=== PATIENT | female | born 1970 | race Asian ===

== ENCOUNTER 2016-07-12 10:42 | Outpatient (CLI) | payer OTHER | END 2016-07-12 10:43 | disposition home or self-care (01) | DX: N63 Unspecified lump in breast (principal) ==

== ENCOUNTER 2017-01-30 16:34 | Emergency (ER) | payer OTHER ==
--- NOTE | 2017-01-30 19:30 | ED Physician Documentation ---
PD HPI SKIN - Stated complaint Stated Complaint: HIVES,LIPS SWELLING - Chief complaint Chief Complaint: Allergic Rx - History obtained from History obtained from: Patient, Family - History of Present Illness Timing - onset: How many days ago (2) Timing - duration: Days (2) Timing - details: Gradual onset, Still present, Waxing and waning Location: [place] Quality / character: Itchy, Burning, Other (swelling of upper lip today. Does not take JIMENEZ meds. No new meds. Got back from [facility] 2 days prior to onset. No noted new exposures.) Associated symptoms: Facial swelling (lip today). No: Fever, Myalgias, Dyspnea , N/V/D Contributing factors: No: Exposed to medication, Exposed to food, Recent illness Similar symptoms before: Has not had sx before Recently seen: Not recently seen Review of Systems Constitutional: denies: Fever, Chills Nose: denies: Rhinorrhea / runny nose, Congestion Throat: denies: Sore throat Respiratory: denies: Cough GI: denies: Abdominal Pain, Nausea, Vomiting, Diarrhea : denies: Dysuria, Frequency Skin: reports: Rash Musculoskeletal: denies: Neck pain, Back pain Neurologic: denies: Near syncope, Headache PD PAST MEDICAL HISTORY - Past Medical History Cardiovascular: None Respiratory: None Neuro: None Endocrine/Autoimmune: None GI: GERD - 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 HEENT: Rhinoplasty - Present Medications Home Medications: Ambulatory Orders Medication Instructions Recorded Confirmed Cetirizine [ZyrTEC] 10 mg PO DAILY #10 tablet 01/30/17 Dexamethasone [Decadron] 4 mg PO BID #10 tablet 01/30/17 Famotidine [Pepcid] 20 mg PO ONCE #10 tablet 01/30/17 Pantoprazole [Protonix] 40 mg PO DAILY 01/30/17 01/30/17 - Allergies Allergies/Adverse Reactions: Allergies Allergy/AdvReac Type Severity Reaction Status Date / Time codeine Allergy Intermediate Nausea Verified 01/30/17 19:32 hydrocodone Allergy Intermediate Nausea Verified 01/30/17 19:32 oxycodone [Oxycodone] Allergy Intermediate Nausea Verified 01/30/17 19:32 amoxicillin [Amoxicillin] Allergy Unknown Verified 01/30/17 19:32 - Social History Does the pt smoke?: No Smoking Status: Never smoker PD ED PE NORMAL - Vitals Vital signs reviewed: Yes - General General: Alert and oriented X 3, Well developed/nourished - HEENT HEENT: Pharynx benign (outer lip swelling. no intraoral swelling noted. Normal voice and breathing. ) - Neck Neck: Supple, no meningeal sign, No adenopathy - Cardiac Cardiac: RRR, No murmur - Respiratory Respiratory: Clear bilaterally - Derm Derm: Normal color, Warm and dry, Other (general hives noted, not in palms though. ) - Neuro Neuro: Alert and oriented X 3, No motor deficit, Normal speech Results - Vitals Vitals: Vital Signs - 24 hr 01/30/17 01/30/17 01/30/17 16:48 18:17 19:38 Temperature 36.4 C L 36.5 C 36.9 C Heart Rate 99 83 86 Respiratory 18 15 15 Rate Blood Pressure 113/78 119/67 113/69 O2 Saturation 100 99 100 01/30/17 20:00 Temperature 36.2 C L Heart Rate 86 Respiratory 18 Rate Blood Pressure 105/73 O2 Saturation 100 Oxygen O2 Source Room air PD MEDICAL DECISION MAKING - ED course Complexity details: considered differential (outer lip swelling but not intraoral, with hives. No trouble breathing. ), d/w patient Departure - Departure Disposition: 01 Home, Self Care Clinical Impression: Allergic reaction Qualifiers: Encounter type: initial encounter Qualified Code(s): T78.40XA - Allergy, unspecified, initial encounter Condition: Stable Record reviewed to determine appropriate education?: Yes Instructions: ED Allergic Reaction General Other Follow-Up: Antoinette Cummings DO [Primary Care Provider] - Prescriptions: Dexamethasone [Decadron] 4 mg PO BID #10 tablet Famotidine [Pepcid] 20 mg PO ONCE #10 tablet Cetirizine [ZyrTEC] 10 mg PO DAILY #10 tablet Comments: Drink lots of fluids. Continue the steroids dexamethasone twice daily for the next 5 days. Cetirizine daily for a week and famotidine daily for a week as long-acting antihistamines. Add Benadryl 1-2 tablets every 6 hours if needed for itching and swelling. Recheck if not improved over the next few days. If this goes away and stays away then no further testing needed. If it persists despite despite medication or is recurrent in the near future then allergy testing may be warranted. Discharge Date/Time: 01/30/17 20:00
[2017-01-30] MEDS ORDERED: FAMOTIDINE 20 MG TABLET PO STA (19:49)
[2017-01-30] MEDS ORDERED: diphenhydrAMINE 25 MG CAPSULE PO STA (19:49)
[2017-01-30] MEDS ORDERED: CETIRIZINE 10 MG TABLET PO STA (19:49)
[2017-01-30] MEDS ORDERED: DEXAMETHASONE 10 MG/ML VIAL PO STA (19:50)
[2017-01-30] MEDS ORDERED: FAMOTIDINE 20 MG TABLET ONE (19:56)
[2017-01-30] MEDS ORDERED: diphenhydrAMINE 25 MG CAPSULE PO ONE (19:56)
[2017-01-30] MEDS ORDERED: DEXAMETHASONE 10 MG/ML VIAL ONE (19:57)
[2017-01-30] MEDS ORDERED: CETIRIZINE 10 MG TABLET ONE (19:57)
[2017-01-30 20:00] VITALS: BP 105/73
== END 2017-01-30 20:00 | disposition home or self-care (01) ==
LOC: ED 16:34
DX: T78.40XA Allergy, unspecified, initial encounter (principal); X58.XXXA Exposure to other specified factors, initial encounter; K21.9 Gastro-esophageal reflux disease without esophagitis
CPT/HCPCS: 99283; A9270

== ENCOUNTER 2017-03-13 12:21 | Outpatient (CLI) | payer OTHER ==
--- NOTE | 2017-03-13 17:26 | Ultrasound Report ---
RIGHT INGUINAL ULTRASOUND: 03/13/2017 CLINICAL INDICATION: Chronic pelvic pain. TECHNIQUE: Real-time scanning was performed with account services representative static images obtained. Ultrasound of the right inguinal canal was performed. There is no evidence of hernia. No adenopathy or mass is identified. IMPRESSION: UNREMARKABLE APPEARANCE OF THE RIGHT INGUINAL CANAL. NO EVIDENCE OF HERNIA. JOB #: [id number] EXT JOB #:[id number]
== END 2017-03-13 12:22 | disposition home or self-care (01) ==
LOC: DI 12:21
PROVIDERS: ATTEND Surgery
DX: R10.2 Pelvic and perineal pain (principal)
CPT/HCPCS: 76857

== ENCOUNTER 2017-04-15 13:53 | Outpatient (CLI) | payer OTHER | END 2017-04-15 13:54 | disposition home or self-care (01) | LOC: LAB.R 13:53 | PROVIDERS: ATTEND Obstetrics & Gynecology | DX: Z11.3 Encounter for screening for infections with a predominantly sexual mode of transmission (principal) | CPT/HCPCS: 87491; 87591 ==

== ENCOUNTER 2017-04-21 10:19 | Outpatient (CLI) | payer OTHER ==
--- NOTE | 2017-04-21 13:34 | Mammography Report ---
DIGITAL DIAGNOSTIC BILATERAL MAMMOGRAM: 04/21/2017 CLINICAL INDICATION: Bilateral palpable abnormalities and pain. TECHNIQUE: Bilateral CC and MLO views, bilateral true lateral views. Markers were placed at the site of painful palpable abnormalities identified by the patient. COMPARISON: 07/12/2016, 06/27/2015, 07/20/2014, 09/27/2013, 09/29/2012, 09/09/2011, 09/19/2010, 09/11. FINDINGS: The breasts again demonstrate heterogeneously dense fibroglandular parenchyma bilaterally. There is a shifting pattern of circumscribed nodules bilaterally, with nodules correlating with the tender palpable abnormalities identified by the markers. Biopsy marker in the left breast is stable. Coarse, typically benign calcifications are present. No suspicious masses, clustered microcalcificati ons, or regions of architectural distortion are identified. IMPRESSION: BENIGN FINDINGS. RECOMMENDATION: ROUTINE ANNUAL SCREENING UNLESS OTHERWISE CLINICALLY INDICATED. BIRADS CATEGORY 2-BENIGN FINDINGS. STANDARD QUALIFYING STATEMENTS 1. This examination was reviewed with the aid of Computer-Aided Detection (CAD). 2. A negative or benign imaging report should not delay biopsy if clinically suspicious findings are present. Consider surgical consultation if warranted. More than 5% of cancers are not identified by i maging. 3. Dense breasts may obscure an underlying neoplasm. JOB #: [id number] EXT JOB #:[id number]
== END 2017-04-21 10:20 | disposition home or self-care (01) ==
LOC: DI 10:19
PROVIDERS: ATTEND Family Medicine
DX: N63.21 Unspecified lump in the left breast, upper outer quadrant (principal); N64.4 Mastodynia; N63.11 Unspecified lump in the right breast, upper outer quadrant
CPT/HCPCS: 77066

== ENCOUNTER 2017-04-26 12:49 | Outpatient (CLI) | payer OTHER ==
--- NOTE | 2017-04-26 17:34 | Ultrasound Report ---
EXAM: PELVIC ULTRASOUND EXAM DATE: 04/26/2017 01:34 p.m. CLINICAL HISTORY: Irregular menses. Previous section and tubal ligation. COMPARISON: 01/25/2015. TECHNIQUE: Realtime transabdominal pelvic scan performed to identify the uterus and adnexa and as an overview of other pelvic structures, followed by transvaginal scan to provide greater detail of the u terus and adnexa, with static image documentation. FINDINGS: Uterus: 8.8 x 4.2 x 4.4 cm, volume 85.1 cc. Anteverted position. Normal overall size and echotexture. Masses: None. Endometrium: 6.0 mm. Normal. Cervix: No mass. Nabothian cysts are noted. Right Ovary: 2.5 x 2.0 x 2.8 cm, volume 7.3 cc. Normal echotexture and blood flow. Multiple follicles with the largest measuring 1.1 x 0.8 x 1.2 cm. No concerning sonographic features. Left Ovary: 2.8 x 1.6 x 1.3 cm, volume 3.0 cc. Normal echotexture and blood flow. Free Fluid: None. Other: None. IMPRESSION: 1. Endometrium measures up to 6 mm. No focal thickening, mass or abnormal vascularity. No invasion is noted. 2. No uterine fibroids. 3. Multiple right ovarian follicles. No concerning features. [facility] Referring Provider Line: [phone] SITE ID: [id number]
== END 2017-04-26 12:50 | disposition home or self-care (01) ==
LOC: DI 12:49
PROVIDERS: ATTEND Obstetrics & Gynecology
DX: N92.5 Other specified irregular menstruation (principal)
CPT/HCPCS: 76830; 76856

== ENCOUNTER 2017-06-13 11:16 | Outpatient (CLI) | payer OTHER ==
[2017-06-13 11:40] LABS: BASOPHILS # (AUTO) 0.1 10^3/uL (0.0-0.1); EOSINOPHILS # (AUTO) 0.1 10^3/uL (0.0-0.7); EOSINOPHILS % (AUTO) 1.7 %; HGB - HEMOGLOBIN 11.7 g/dL (12.0-16.0); LYMPHOCYTES # (AUTO) 2.3 10^3/uL (1.5-3.5); LYMPHOCYTES % (AUTO) 27.6 %; MEAN CORPUSCULAR HEMOGLOBIN 23.6 pg (27.0-31.0); MEAN CORPUSCULAR HGB CONC 31.9 g/dL (32.0-36.0); MEAN CORPUSCULAR VOLUME 73.9 fL (81.0-99.0); MEAN PLATELET VOLUME 7.4 fL (7.9-10.8); MONOCYTES # (AUTO) 0.7 10^3/uL (0.0-1.0); MONOCYTES % (AUTO) 8.8 %; NEUTROPHILS # (AUTO) 5.2 10^3/uL (1.5-6.6); NEUTROPHILS % (AUTO) 60.9 %; PLT - PLATELET COUNT 335 10^3/uL (130-450); RED BLOOD COUNT 4.98 10^6/uL (4.20-5.40); RED CELL DISTRIBUTION WIDTH 15.3 % (12.0-15.0); WHITE BLOOD COUNT 8.5 x10^3/uL (4.8-10.8)
[2017-06-13 12:03] LABS: CALCIUM 9.5 mg/dL (8.5-10.3); CREATININE 0.5 mg/dL (0.4-1.0)
== END 2017-06-13 11:17 | disposition home or self-care (01) ==
LOC: LAB 11:16
PROVIDERS: ATTEND Obstetrics & Gynecology
DX: Z01.812 Encounter for preprocedural laboratory examination (principal); R10.2 Pelvic and perineal pain
CPT/HCPCS: 36415; 80048; 84702; 85025

== ENCOUNTER 2017-06-18 10:42 | Day surgery (SDC) | payer OTHER ==
--- NOTE | 2017-06-17 15:04 | PREOP HISTORY & PHYSICAL ---
DATE OF SERVICE: 06/18/2017 Physician: Pk Lantigua MD PATIENT IDENTIFICATION: Patient is a 47-year-old G2, P2, female whose last menstrual period was 21 May 2017. CHIEF COMPLAINT: Lower abdominal pain. HISTORY OF PRESENT ILLNESS: Patient has a longstanding history of right lower quadrant pain. It is sharp in quality. She relates the pain is anywhere from a 6/10 to 8/10. She states it will awaken her from sleep at night. She states the pain will last up to 4 minutes in duration. She denies any precipitating cause such as menstrual cycle, bowel motion, or pareunia. She has had numerous ultrasounds, all of which were benign. She gives a history of having a with tubal ligation in 2003. She has a diagnosed history of interstitial cystitis, but her pain continues despite therapy. PAST MEDICAL HISTORY: Positive for reflux. She also has interstitial cystitis as well as low back pain. SURGICAL HISTORY: section and tubal ligation. ALLERGIES 1. PENICILLIN. 2. CODEINE. 3. VICODIN. CURRENT MEDICATIONS: Protonix. HABITS: Patient drinks wine occasionally. Denies use of tobacco, street or addictive drugs. SOCIAL HISTORY: Patient is . 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 FAMILY HISTORY: Positive for father with an SC, as well as dementia in the mother who from heart disease. PHYSICAL EXAMINATION GENERAL: Patient is a well-developed, well-nourished female. She is in no acute distress at this time. HEENT: Pupils equal, round. Extraocular muscles intact. HEART: Regular rate and rhythm without murmurs. LUNGS: Lung gimenez are clear without rales or wheezes. BACK: No spinal or CVA tenderness noted. ABDOMEN: Exam shows a well healed Pfannenstiel incision from a previous section. She has tenderness in the right lower quadrant duplicating the pain she is complaining of. She has previously had a pelvic examination. STUDIES: She recently had an ultrasound which showed no cysts or any other pathology at this point. ASSESSMENT AND PLAN: A 47-year-old G2, P2 female with a longstanding pelvic pain, which appeared to be noncyclic. My suspicions are this possibly represents adhesions. At this point, we will plan to do a diagnostic laparoscopy with lysis of adhesions if they are present. Risks and benefits were explained to the patient, including those, but not limited to bleeding, infection, injury to pelvic organs, which include the uterus, tubes, ovaries, bowel, bladder, and ureters. She is aware of the potential for DVT with PE, as well as postop adhesions which could cause pain or bowel obstruction. TD: 06/12/2017 15:22
[2017-06-18] MEDS ORDERED: ceFAZolin 2 GM/50 ML 2 GM/50 ML BAG IV ONE (10:43)
[2017-06-18] MEDS ORDERED: LACTATED RINGERS 1,000 ML IV ONE ×3 (11:19→17:10)
[2017-06-18 11:28] LABS: HCG UR QUAL NEGATIVE
[2017-06-18] MEDS ORDERED: BUPIVACAINE 0.25%-EPI 1:200000 PF 10 ML VIAL SUBQ ONE (12:55)
[2017-06-18] MEDS ORDERED: ONDANSETRON 4 MG/2 ML VIAL IVP ONE (13:45)
[2017-06-18] MEDS ORDERED: fentaNYL 100 MCG/2 ML VIAL IVP ONE (13:45)
[2017-06-18] MEDS ORDERED: ROCURONIUM 50 MG/5 ML VIAL IVP ONE (13:45)
[2017-06-18] MEDS ORDERED: KETOROLAC 30 MG/ML VIAL IVP ONE (13:45)
[2017-06-18] MEDS ORDERED: PROPOFOL 200 MG/20 ML VIAL IVP ONE (13:45)
[2017-06-18] MEDS ORDERED: LIDOCAINE-MPF 2% 5 ML VIAL IM ONE (13:45)
[2017-06-18] MEDS ORDERED: GLYCOPYRROLATE 1 MG/5 ML VIAL IVP ONE (13:45)
[2017-06-18] MEDS ORDERED: NEOSTIGMINE 1 MG/1 ML 10 ML MDV IVP ONE (13:45)
[2017-06-18] MEDS: MEPERIDINE 50 MG/ML SYRINGE ONE ×2 (13:58→14:00)
[2017-06-18] MEDS ORDERED: fentaNYL 100 MCG/2 ML VIAL ONE (14:04)
[2017-06-18] MEDS ORDERED: ONDANSETRON 4 MG/2 ML VIAL ONE (15:33)
[2017-06-18] MEDS ORDERED: METOCLOPRAMIDE 10 MG/2 ML VIAL ONE (17:11)
[2017-06-18 17:36] VITALS: BP 122/73
== END 2017-06-18 10:43 | disposition home or self-care (01) ==
LOC: SDS 10:42
PROVIDERS: ATTEND Obstetrics & Gynecology
PROC: 0DBW4ZZ Excision of Peritoneum, Percutaneous Endoscopic Approach (ICD-10-PCS; principal; 2017-06-18 12:00)
DX: K66.0 Peritoneal adhesions (postprocedural) (postinfection) (principal); N94.89 Other specified conditions associated with female genital organs and menstrual cycle
CPT/HCPCS: 49329; 58662; 81025; J0690; J7120

== ENCOUNTER 2017-11-18 09:12 | Outpatient (CLI) | payer OTHER ==
[2017-11-18 12:29] LABS: HB2 TOTAL 12.6 g/dL; HEMOGLOBIN A1C 0.49 g/dL; HEMOGLOBIN A1C % 5.7 % (4.6-6.2)
[2017-11-18 12:31] LABS: BASOPHILS # (AUTO) 0.1 10^3/uL (0.0-0.1); BASOPHILS % (AUTO) 1.1 %; EOSINOPHILS # (AUTO) 0.2 10^3/uL (0.0-0.7); EOSINOPHILS % (AUTO) 2.7 %; HGB - HEMOGLOBIN 11.6 g/dL (12.0-16.0); LYMPHOCYTES # (AUTO) 2.2 10^3/uL (1.5-3.5); LYMPHOCYTES % (AUTO) 33.4 %; MEAN CORPUSCULAR HEMOGLOBIN 24.2 pg (27.0-31.0); MEAN CORPUSCULAR HGB CONC 31.2 g/dL (32.0-36.0); MEAN CORPUSCULAR VOLUME 77.4 fL (81.0-99.0); MEAN PLATELET VOLUME 8.5 fL (7.9-10.8); MONOCYTES # (AUTO) 0.6 10^3/uL (0.0-1.0); MONOCYTES % (AUTO) 8.3 %; NEUTROPHILS # (AUTO) 3.7 10^3/uL (1.5-6.6); NEUTROPHILS % (AUTO) 54.5 %; PLT - PLATELET COUNT 338 10^3/uL (130-450); RED BLOOD COUNT 4.79 10^6/uL (4.20-5.40); RED CELL DISTRIBUTION WIDTH 16.1 % (12.0-15.0); WHITE BLOOD COUNT 6.7 x10^3/uL (4.8-10.8)
[2017-11-18 12:38] LABS: ALBUMIN/GLOBULIN RATIO 1.1 (1.0-2.2); ALKALINE PHOSPHATASE 50 IU/L (42-121); ALT ALANINE AMINOTRANSFERASE 14 IU/L (10-60); AST ASPARTATE AMINOTRANSFERASE 19 IU/L (10-42); BILIRUBIN,TOTAL 0.5 mg/dL (0.2-1.0); BUN - BLOOD UREA NITROGEN 12 mg/dL (6-20); CALCIUM 8.7 mg/dL (8.5-10.3); CARBON DIOXIDE - CO2 26 mmol/L (21-32); CHLORIDE 104 mmol/L (101-111); CHOL/HDL RATIO 4.1 (<4.4); CHOLESTEROL 239 mg/dL; CREATININE 0.5 mg/dL (0.4-1.0); GFR - MDRD 133 (>89); GLUCOSE 98 mg/dL (70-100); HDL CHOLESTEROL 58 mg/dL; LDL CHOLESTEROL,CALCULATED 162 mg/dL; LDL/HDL RATIO 2.8 (<4.4); SODIUM 135 mmol/L (135-145); TOTAL PROTEIN 7.7 g/dL (6.7-8.2); VLDL CHOLESTEROL 19 mg/dL
== END 2017-11-18 09:13 | disposition home or self-care (01) ==
LOC: LAB.WCP 09:12
PROVIDERS: ATTEND Family Medicine
DX: Z00.00 Encounter for general adult medical examination without abnormal findings (principal)
CPT/HCPCS: 36415; 80053; 80061; 83036; 83721; 84443; 85025

== ENCOUNTER 2017-12-11 08:04 | Outpatient (CLI) | payer OTHER ==
[2017-12-11 12:41] LABS: HB2 TOTAL 12.6 g/dL; HEMOGLOBIN A1C 0.49 g/dL; HEMOGLOBIN A1C % 5.7 % (4.6-6.2)
[2017-12-11 12:52] LABS: THYROID STIMULATING HORMONE 1.83 uIU/mL (0.34-5.60)
== END 2017-12-11 08:05 | disposition home or self-care (01) ==
LOC: LAB.WCP 08:04
PROVIDERS: ATTEND Family Medicine
DX: R20.2 Paresthesia of skin (principal)
CPT/HCPCS: 36415; 82607; 83036; 84443; 86140

== ENCOUNTER 2018-02-25 09:12 | Outpatient (CLI) | payer OTHER ==
--- NOTE | 2018-02-25 18:21 | MRI Report ---
Reason: LOW BACK PAIN, CHRONIC Procedure Date: 02/25/2018 Accession Number: [id number] / [id number] Procedure: MRI - Lumbar Spine W/O CPT Code: FULL RESULT: EXAM: MRI LUMBAR SPINE WITHOUT CONTRAST EXAM DATE: 02/25/2018 10:54 AM. CLINICAL HISTORY: Low back pain, chronic. COMPARISON: Lumbar spine MRI from 08/09/2009 8:06 AM. TECHNIQUE: Multiplanar, multisequence T1-weighted and fluid-sensitive sequences of the lumbar spine from T12 to S1 without contrast. Other: None. FINDINGS: Spinal Canal: The conus terminates at L1-L2. The conus medullaris and cauda equina are unremarkable. Alignment: No scoliosis or spondylolisthesis. Bone Marrow: Five ais-[id number]-jkdfasf lumbar vertebral bodies are assumed. Type II degenerative endplate changes at L5-S1. Schmorl's node at the L5 inferior endplate. No acute fracture or bone lesions. Disk Levels/Facets: L5-S1: Minimal disk bulge. Posterior annular fissure. Mild to moderate facet arthropathy. No canal stenosis. Mild to moderate left and mild right foraminal stenoses. No change. L4-L5: Small disk bulge. Mild facet arthropathy. Mild canal and mild to moderate foraminal stenoses. The findings are new since the previous study. L3-L4: Small left foraminal disk protrusion. Minimal left foraminal narrowing. Findings are new since the previous study. L2-L3: Unremarkable. L1-L2 and T12-L1: Unremarkable. Musculature: Normal. No edema or fatty atrophy. Other: The partially visualized retroperitoneum is unremarkable. IMPRESSION: 1. Minimal disk bulge and posterior annular fissure at L5-S1. Mild to moderate left and mild right foraminal stenoses. No change. 2. New small disk bulge at L4-L5. Mild canal and mild to moderate foraminal stenoses. 3. New small left foraminal disk protrusion and minimal left foraminal narrowing at L3-L4. Comment: The following findings are so common in adults without low back pain that while we report their presence, they must be interpreted with caution and in the context of the clinical situation. (Reference Mgk et al, Spine 2001) Prevalence of findings in patients without low back pain: Disk degeneration (any evidence): 92% Disk desiccation/T2 signal loss: 83% Disk height loss: 56% Disk bulge: 64% Disk protrusion: 32% Annular tear/high intensity zone: 38% [facility]
== END 2018-02-25 09:13 | disposition home or self-care (01) ==
LOC: DI 09:12
PROVIDERS: ATTEND Physician Assistant Medical
DX: M51.26 Other intervertebral disc displacement, lumbar region (principal); M48.061 Spinal stenosis, lumbar region without neurogenic claudication; N64.4 Mastodynia; N63.0 Unspecified lump in unspecified breast
CPT/HCPCS: 72148; 77066

== ENCOUNTER 2018-02-25 09:13 | Outpatient (CLI) | payer OTHER ==
--- NOTE | 2018-02-25 11:54 | Mammography Report ---
Reason: MASTALGIA,LUMP OR MASS IN BREAST Procedure Date: 02/25/2018 Accession Number: [id number] / [id number] Procedure: BETITO - Diagnostic Dig Bilat CPT Code: FULL RESULT: EXAM: Diagnostic Dig Bilat DATE: 02/25/2018 11:12 AM CLINICAL HISTORY: 47-year-old female with benign lump removal in the left breast approximately 7-8 years ago. The patient has been having bilateral breast pain for over one year. TECHNIQUE: Bilateral CC and MLO views are obtained. COMPARISON: 04/21/2017, 07/12/2016, 06/27/2015, 07/20/2014. FINDINGS: The breasts demonstrate heterogeneously dense fibroglandular parenchyma bilaterally. Postbiopsy changes in the left upper outer breast are unchanged. Again seen is a shifting pattern of circumscribed hyperdense nodules bilaterally which are compatible with cysts that are waxing and waning. This has also been identified mammographically and sonographically confirmed in the past. No suspicious masses, clustered microcalcifications or regions of architectural distortion are identified. IMPRESSION: Benign findings RECOMMENDATION: Recommend routine annual Screening mammography unless otherwise clinically indicated. BIRADS CATEGORY 2: Benign findings STANDARD QUALIFYING STATEMENTS: 1. This examination was not reviewed with the aid of Computer-Aided Detection (CAD). 2. A negative or benign imaging report should not delay biopsy if clinically suspicious findings are present. Consider surgical consultation if warrented. More than 5% of cancers are not identified by imaging. 3. Dense breasts may obscure an underlying neoplasm.
== END 2018-02-25 09:14 | disposition home or self-care (01) ==
LOC: DI 09:13
PROVIDERS: ATTEND Family Medicine
DX: N64.4 Mastodynia (principal); N63.0 Unspecified lump in unspecified breast
CPT/HCPCS: 77066

== ENCOUNTER 2018-09-17 13:17 | Outpatient (CLI) | payer OTHER ==
[2018-09-17] MEDS ORDERED: BUFFERED LIDOCAINE 10 ML SYRINGE ONE (14:24)
--- NOTE | 2018-09-17 14:49 | Mammography Report ---
Reason: FIBROCYSTIC BREAST DISEASE, LT BREAST CYST Procedure Date: 09/17/2018 Accession Number: [id number] / [id number] Procedure: BETITO - Diagnostic Dig LT CPT Code: FULL RESULT: EXAM: Diagnostic Digital LT Mammogram; Targeted Left Breast Ultrasound; Ultrasound-Guided Left Breast Cyst Aspiration x 2 DATE: 09/17/2018 1:51 PM CLINICAL HISTORY: Painful fibrocystic disease. TECHNIQUE: (L) - Left. CC and MLO views were obtained. Then, targeted left breast ultrasound was performed in the area of clinical interest which was the superior and upper outer quadrant left breast. This was followed by ultrasound-guided therapeutic left breast cyst aspiration. COMPARISON: Ultrasound 04/26/2017, mammogram 07/12/2016, 04/21/2017, and 02/25/2018. PARENCHYMAL PATTERN: (D) - The breasts demonstrate heterogeneously dense fibroglandular parenchyma bilaterally. FINDINGS: On mammography, there are again seen numerous rounded sharply marginated cysts scattered throughout the left breast, too numerous to count. There are at least 2 stable dominant cysts in the superior left breast. Targeted ultrasound discloses 2 benign-appearing dominant cysts in the 12:00 and 1:00 positions each approximately 2 cm maximal diameter, and corresponding to area of breast pain. Informed consent was obtained for ultrasound-guided therapeutic left breast cyst aspiration in the area of maximal breast pain. There are 2 separate approximate 2.0 cm maximal diameter each cysts, one in the 12:00 position and one in the 1:00 position. Using local anesthetic and sterile technique, an 18-gauge needle was used to aspirate each cyst, yielding approximately 1.5 cc from each cyst. No complications. IMPRESSION: Benign findings. BI-RADS category 2. RECOMMENDATION: (ANNUAL) - Recommend routine annual screening mammography. BI-RADS CATEGORY: (2) - Benign Findings. STANDARD QUALIFYING STATEMENTS: 1. This examination was not reviewed with the aid of Computer-Aided Detection (CAD). 2. A negative or benign imaging report should not preclude biopsy if clinically suspicious findings are present. 3. Dense breasts may obscure an underlying neoplasm. 4. This examination was reviewed without the aid of 3D breast imaging (tomosynthesis).
[2018-09-17] MEDS ORDERED: BUFFERED LIDOCAINE 10 ML SYRINGE IU ONE (15:01)
== END 2018-09-17 13:18 | disposition home or self-care (01) ==
LOC: DI 13:17
PROVIDERS: ATTEND Family Medicine
DX: N60.19 Diffuse cystic mastopathy of unspecified breast (principal); N60.02 Solitary cyst of left breast
CPT/HCPCS: 19000; 76642

== ENCOUNTER → 2018-10-29 | Outpatient (CLI) | payer OTHER | LOC: LAB.R 08:00 | PROVIDERS: ATTEND Family Medicine | DX: N76.0 Acute vaginitis (principal) | CPT/HCPCS: 87661; 87801 ==

== ENCOUNTER 2018-11-16 08:00 | Outpatient (CLI) | payer OTHER ==
[2018-11-16 21:30] LABS: CANDIDA GROUP DNA NEGATIVE (NEGATIVE); CANDIDA KRUSEI DNA NEGATIVE (NEGATIVE); TRICHOMONAS VAGINALIS DNA NEGATIVE (NEGATIVE)
== END 2018-11-16 23:59 | disposition home or self-care (01) ==
LOC: LAB.R 08:00
PROVIDERS: ATTEND Family Medicine
DX: N76.0 Acute vaginitis (principal)
CPT/HCPCS: 87661; 87801

== ENCOUNTER 2019-05-25 10:32 | Outpatient (CLI) | payer OTHER ==
[2019-05-25 15:48] LABS: BASOPHILS # (AUTO) 0.1 10^3/uL (0.0-0.1); BASOPHILS % (AUTO) 0.9 %; EOSINOPHILS # (AUTO) 0.2 10^3/uL (0.0-0.7); EOSINOPHILS % (AUTO) 2.9 %; HGB - HEMOGLOBIN 12.5 g/dL (12.0-16.0); LYMPHOCYTES # (AUTO) 2.4 10^3/uL (1.5-3.5); LYMPHOCYTES % (AUTO) 36.8 %; MEAN CORPUSCULAR HEMOGLOBIN 24.7 pg (27.0-31.0); MEAN CORPUSCULAR HGB CONC 29.6 g/dL (32.0-36.0); MEAN CORPUSCULAR VOLUME 83.2 fL (81.0-99.0); MEAN PLATELET VOLUME 10.2 fL (7.9-10.8); MONOCYTES # (AUTO) 0.6 10^3/uL (0.0-1.0); MONOCYTES % (AUTO) 9.4 %; NEUTROPHILS # (AUTO) 3.2 10^3/uL (1.5-6.6); NEUTROPHILS % (AUTO) 49.7 %; PLT - PLATELET COUNT 384 10^3/uL (130-450); RED BLOOD COUNT 5.07 10^6/uL (4.20-5.40); RED CELL DISTRIBUTION WIDTH 16.1 % (12.0-15.0); WHITE BLOOD COUNT 6.5 x10^3/uL (4.8-10.8)
[2019-05-25 16:28] LABS: ALBUMIN 4.3 g/dL (3.2-5.5); ALBUMIN/GLOBULIN RATIO 1.3 (1.0-2.2); BILIRUBIN,TOTAL 0.4 mg/dL (0.2-1.0); CALCIUM 9.2 mg/dL (8.5-10.3); CREATININE 0.6 mg/dL (0.4-1.0); TOTAL PROTEIN 7.7 g/dL (6.7-8.2)
== END 2019-05-25 23:59 | disposition home or self-care (01) ==
LOC: LAB.WCP 10:32
PROVIDERS: ATTEND Family Medicine
DX: R10.11 Right upper quadrant pain (principal)
CPT/HCPCS: 36415; 80053; 80061; 83690; 83721; 84702; 85025

== ENCOUNTER 2019-05-30 06:35 | Outpatient (CLI) | payer OTHER ==
--- NOTE | 2019-05-30 11:17 | Ultrasound Report ---
Reason: ABDOMINAL PAIN,RUQ Procedure Date: 05/30/2019 Accession Number: [id number] / [id number] Procedure: US - Abdomen Limited CPT Code: Final Report FULL RESULT: EXAM: ABDOMEN ULTRASOUND LIMITED, RUQ EXAM DATE: 05/30/2019 10:56 AM. CLINICAL HISTORY: ABDOMINAL PAIN,RUQ. COMPARISON: None. TECHNIQUE: Real-time scanning was performed with static images obtained. FINDINGS: Liver: Normal echotexture.No focal lesion. Liver measures 15.8 cm craniocaudally. Main portal vein flow: Hepatopetal. Gallbladder: Gallbladder wall thickness is normal.No gallstones.Sonographic Berg sign is absent, per technologist's notes. Biliary System: Common bile duct measures 4 mm. No intrahepatic ductal dilatation. Pancreas: Visualized portion is unremarkable. Right Kidney: 9.7 cm longitudinally. Normal echotexture.No hydronephrosis.No contour-deforming mass.No calculus. Other: IMPRESSION: 1. No cholelithiasis or supporting ultrasound evidence of acute cholecystitis. 2. Common bile duct is normal caliber. [facility]
== END 2019-05-30 06:36 | disposition home or self-care (01) ==
LOC: DI 06:35
PROVIDERS: ATTEND Family Medicine
DX: R10.11 Right upper quadrant pain (principal)
CPT/HCPCS: 76705

== ENCOUNTER 2019-08-18 14:29 | Outpatient (CLI) | payer OTHER ==
--- NOTE | 2019-08-18 15:00 | XRAY Report ---
Reason: COUGH Procedure Date: 08/18/2019 Accession Number: [id number] / [id number] Procedure: WCP - Chest 2 View X-Ray CPT Code: 64687 Final Report FULL RESULT: EXAM: CHEST RADIOGRAPHY EXAM DATE: 08/18/2019 02:29 PM. CLINICAL HISTORY: Cough. COMPARISON: CHEST 1V 12/10/2005 11:12 AM. TECHNIQUE: 2 views. FINDINGS: Lungs/Pleura: No focal opacities evident. No pleural effusion. No pneumothorax. Normal volumes. Mediastinum: Heart and mediastinal contours are unremarkable. Other: None. IMPRESSION: No acute consolidations. [facility]
== END 2019-08-18 23:59 | disposition home or self-care (01) ==
LOC: DI.WCP 14:29
PROVIDERS: ATTEND Family Medicine
DX: R05 Cough (principal)
CPT/HCPCS: 71046

== ENCOUNTER 2020-03-07 10:19 | Outpatient (CLI) | payer OTHER ==
--- NOTE | 2020-03-07 10:21 | XRAY Report ---
PROCEDURE: Ankle 3 View RT INDICATIONS: ANKLE PAIN TECHNIQUE: 3 views of the ankle were acquired. COMPARISON: None FINDINGS: Bones: No fractures or dislocations. Ankle mortise is normally aligned. No suspicious bony lesions . Soft tissues: No tibiotalar joint effusion. Achilles tendon appears normal. IMPRESSION: No visualized acute fracture or dislocation. However, occult injury cannot be excluded. Recommend short interval imaging follow-up in 7-10 days as clinically indicated for additional evalua tion. Reviewed by: Sierra Davidson MD on 03/07/2020 10:19 AM PDT Approved by: Sierra Davidson MD on 03/07/2020 10:19 AM PDT Station ID: [id number]
== END 2020-03-07 23:59 | disposition home or self-care (01) ==
LOC: DI.WCP 10:19
PROVIDERS: ATTEND Family Medicine
DX: M25.571 Pain in right ankle and joints of right foot (principal)

== ENCOUNTER 2020-08-29 11:08 | Outpatient (CLI) | payer OTHER ==
--- NOTE | 2020-08-30 12:05 | Ultrasound Report ---
LIMITED ULTRASOUND OF LEFT BREAST: 08/29/2020 CLINICAL: Palpable left breast lumps. Comparison is made to exams dated: 08/29/2020 ultrasound, 08/29/2020 mammogram, 09/17/2018 mammogram, ultrasound, 09/17/2018 ultrasound biopsy, and 02/25/2018 mammogram - [facility]. Ultrasound of the left breast 2 o'clock and 10 o'clock regions was performed. There is a benign 1.9 cm x 1.7 cm x 1 cm oval cyst in the left breast at 2 o'clock anterior depth 3 c m from the nipple. This oval cyst is hypoechoic. This correlates as palpated and with mammography f indings. Color flow imaging demonstrates that there is no vascularity present. There also is a benign 1.7 cm x 1.9 cm x 1.8 cm round cyst in the left breast at 10 o'clock middle de pth 3 cm from the nipple. This round cyst is anechoic. This correlates as palpated and with mammogr aphy findings. Color flow imaging demonstrates that there is no vascularity present. Several other smaller cysts are scattered throughout the left breast. IMPRESSION: BENIGN There is no sonographic evidence of malignancy. The 1.9 cm oval cyst in the left breast at 2 o'clock anterior depth is a proteinaceous cyst and is be nign. The 1.9 cm round cyst in the left breast at 10 o'clock middle depth is consistent with a simple cyst and is benign. A 1 year screening mammogram is recommended. Findings and recommendations were conveyed to the patient at time of exam. This exam was interpreted at Station ID: [id number]. Electronically Signed By: Anjelica alvarez/:08/29/2020 14:22:21 Ultrasound BI-RADS: 2 Benign BI-RADS CATEGORY: (2) - 2 RECOMMENDATION: (ANNUAL) - Recommend routine annual screening mammography. [id number] 1 year screening LATERALITY: (B)
--- NOTE | 2020-08-30 12:05 | Mammography Report ---
BILATERAL DIGITAL DIAGNOSTIC MAMMOGRAM 3D/2D: 08/29/2020 CLINICAL: Palpable right breast lump. Palpable left breast lump. Comparison is made to exams dated: 09/17/2018 mammogram, 02/25/2018 mammogram, 04/21/2017 mammogram, mammogram, and 06/27/2015 mammogram - [facility]. The tissue of both breas ts is heterogeneously dense. This may lower the sensitivity of mammography. There is a 3.1 cm oval high density mass with a circumscribed margin in the right breast at 10 o'cloc k middle depth. This is increased in size and correlates as palpated and to the area of reported clary n. There also is a 2.7 cm oval equal density mass with a circumscribed margin in the right breast at 5 o 'clock anterior depth. This is not significantly changed. Additionally, there is a cluster of round cysts with a circumscribed margin in the right breast at 12 o'clock anterior depth. This is more prominent. There is a 2.2 cm oval high density mass in the left breast at 10 o'clock anterior depth. This is no t significantly changed. There also is a cluster of round cysts with a circumscribed margin in the left breast at 1 o'clock an terior depth. This is not significantly changed. No other significant masses or calcifications are seen in either breast. IMPRESSION: INCOMPLETE: NEEDS ADDITIONAL IMAGING EVALUATION The 3.1 cm oval high density mass in the right breast at 10 o'clock middle depth most likely is a cys t but remains indeterminate. This has increased in size. The 2.7 cm oval equal density mass in the right breast at 5 o'clock anterior depth most likely is a c yst but remains indeterminate. This is stable compared to prior. The cluster of round cysts in the right breast at 12 o'clock anterior depth is indeterminate. The 2.2 cm oval high density mass in the left breast at 10 o'clock anterior depth most likely is a cy st but remains indeterminate. No significant size change. The cluster of round cysts in the left breast at 1 o'clock anterior depth is indeterminate. Bilateral breast ultrasound is recommended for full evaluation of these areas. This was performed imm ediately following this exam. This exam was interpreted at Station ID: [id number]. NOTE: For mammograms, a report in lay terms will be sent to the patient. Approximately 15% of breast malignancies will not be visualized mammographically. In the management of a palpable breast mass, a negative mammogram must not discourage biopsy of a clinically suspicious lesion. Electronically Signed By: Anjelica alvarez/:08/29/2020 14:13:35 ACR BI-RADS Category 0: Incomplete 3340F PARENCHYMAL PATTERN: (D) - The breast(s) demonstrate(s) heterogeneously dense fibroglandular parlakishay frankie. BI-RADS CATEGORY: (0) - 0 Ultrasound [id number] Immediate follow-up LATERALITY: (B)
--- NOTE | 2020-08-30 12:05 | Ultrasound Report ---
LIMITED ULTRASOUND OF RIGHT BREAST: 08/29/2020 CLINICAL: Palpable right breast lumps. Comparison is made to exams dated: 08/29/2020 mammogram, 09/17/2018 mammogram, 09/17/2018 ultrasound, ultrasound biopsy, 02/25/2018 mammogram, and 04/21/2017 mammogram - [facility]. Ultrasound of the right breast 5 o'clock, 10 o'clock, and 12 o'clock regions was performed. There are several benign simple cysts in the right breast at 12 o'clock that correlate with mammograp hy. There is a benign 2.8 cm x 2.9 cm x 2 cm oval cyst in the right breast at 10 o'clock middle depth 8 c m from the nipple. This correlates as palpated and to the reported pain. Color flow imaging demonst rates that there is no vascularity present . There also is a benign 2.1 cm x 2.5 cm x 1.4 cm oval cyst with cholesterol crystals/ debris in the ri ght breast at 4 o'clock anterior depth 1 cm from the nipple. This oval cyst with debris is hypoechoi c with posterior acoustic enhancement. This correlates with mammography findings. Color flow imagin g demonstrates that there is no vascularity present. IMPRESSION: BENIGN There is no sonographic evidence of malignancy. The 2.9 cm cyst in the right breast at 10 o'clock middle depth is consistent with an enlarging simple cyst and is benign. The 2.5 cm cyst with debris in the right breast at 4 o'clock anterior depth is stable compared to deepti or mammograms in size and is benign. Return to annual mammogram screening schedule is recommended. Findings and recommendations were conveyed to the patient at time of exam. This exam was interpreted at Station ID: [id number]. Electronically Signed By: Anjelica alvarez/:08/29/2020 14:19:13 Ultrasound BI-RADS: 2 Benign BI-RADS CATEGORY: (2) - 2 RECOMMENDATION: (ANNUAL) - Recommend routine annual screening mammography. [id number] return to screening LATERALITY: (B)
== END 2020-08-29 11:09 | disposition home or self-care (01) ==
LOC: DI 11:08
PROVIDERS: ATTEND Family Medicine
DX: N60.12 Diffuse cystic mastopathy of left breast (principal); N60.11 Diffuse cystic mastopathy of right breast

== ENCOUNTER 2021-04-07 23:26 | Emergency (ER) | payer OTHER ==
[2021-04-07 23:34] VITALS: BP 148/98
[2021-04-07] MEDS ORDERED: KETOROLAC 30 MG/ML VIAL IM STA (23:41)
--- NOTE | 2021-04-07 23:43 | ED Physician Documentation ---
History of Present Illness - Stated complaint Stated Complaint: BACK PX - Chief complaint Chief Complaint: Back Pain - History obtained from History obtained from: Patient - Additonal information Additional information: 50-year-old woman with past medical history of chronic lower back pain presents with right upper back pain for the past 3 days, gradual in onset, constant, progressively worsening, worse with twisting, improved with [id number] meds but unrelieved. Denies cough, fever, chest pain, shortness of breath numbness, weakness or tingling of extremities. 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 HEENT: Rhinoplasty - Present Medications Home Medications: Ambulatory Orders Medication Instructions Recorded Confirmed Pantoprazole [Protonix] 40 mg PO DAILY 01/30/17 06/18/17 Ketorolac [Toradol] 10 mg PO Q6H PRN #30 tablet 04/07/21 - Allergies Allergies/Adverse Reactions: Allergies Allergy/AdvReac Type Severity Reaction Status Date / Time codeine Allergy Intermediate Nausea Verified 04/07/21 23:30 hydrocodone Allergy Intermediate Nausea Verified 04/07/21 23:30 oxycodone [Oxycodone] Allergy Intermediate Nausea Verified 04/07/21 23:30 amoxicillin [Amoxicillin] Allergy Itching Verified 04/07/21 23:30 - Social History Does the pt smoke?: No Smoking Status: Never smoker PD ED PE NORMAL - Vitals Vital signs reviewed: Yes - General General: Alert and oriented X 3, No acute distress, Well developed/nourished - HEENT HEENT: Atraumatic, PERRL, EOMI - Neck Neck: Supple, no meningeal sign - Cardiac Cardiac: RRR - Respiratory Respiratory: No respiratory distress, Clear bilaterally - Back Back: No spinal TTP, Other (R upper back discomfort in a muscle distribution) - Extremities Extremities: Other (2+ pulses all extremities. normal strength, sensation) - Neuro Neuro: No motor deficit, No sensory deficit Results - Vitals Vitals: Vital Signs - 24 hr 04/07/21 23:31 Temperature 36.5 C Heart Rate 73 Respiratory 116 H Rate Blood Pressure 148/98 H O2 Saturation 97 Oxygen O2 Source Room air PD MEDICAL DECISION MAKING - ED course ED course: 50-year-old woman presents with acute on chronic back pain, worsening over the past few days. Toradol shot administered and Toradol prescription provided. Symptomatic care discussed. Return precautions given. Patient will follow up with her primary doctor. Departure - Departure Disposition: 01 Home, Self Care Clinical Impression: Back pain Condition: Good Instructions: Back Pain Relieve Prescriptions: Ketorolac [Toradol] 10 mg PO Q6H PRN #30 tablet PRN Reason: Pain Comments: You were seen in the emergency department for a back injury. You can take Toradol as needed as prescribed for pain but do not take within 6 hours of taking other NSAIDs such as ibuprofen, Motrin, naproxen, or Advil. Please have a small snack when taking a Toradol pill. Return to the emergency department you have any new or worsening symptoms or concerns. Follow-up with your primary doctor.
== END 2021-04-08 00:17 | disposition home or self-care (01) ==
LOC: ED 23:26
DX: M54.6 Pain in thoracic spine (principal); G89.29 Other chronic pain
CPT/HCPCS: 96372; 99283

== ENCOUNTER 2022-08-19 12:17 | Outpatient (CLI) | payer OTHER ==
--- NOTE | 2022-08-20 13:13 | Mammography Report ---
BILATERAL DIGITAL DIAGNOSTIC MAMMOGRAM 3D/2D: 08/19/2022 CLINICAL: Multiple bilateral breast lumps. Comparison is made to exams dated: 07/18/2021 breast MRI - [facility], 08/29/2020 mammogram, 019 mammogram, 02/25/2018 mammogram, and 04/21/2017 mammogram - [facility]. Both breasts are heterogeneously dense, which may obscure small masses (category c / 51-75% glandular tissue). There are multiple masses in both breasts which are decreased in size and number from the 08/29/2020 m ammogram. Some of these masses correspond as palpated by the patient. No significant masses, calcifications, or other findings are seen in either breast. IMPRESSION: INCOMPLETE: NEEDS ADDITIONAL IMAGING EVALUATION A targeted ultrasound of the bilateral breasts is recommended to evaluate the multiple palpable areas and will be performed immediately following this exam. Based on the Tyrer Cuzick model (a risk assessment model) the patients lifetime risk is 10.2% and he r 10 year risk is 2.4%. According to the ACR, ACS, and NCCN guidelines, an annual breast MRI exam nabila ng with mammogram is recommended if the patients lifetime risk is 20% or greater. This exam was interpreted at Station ID: [id number]. NOTE: For mammograms, a report in lay terms will be sent to the patient. Approximately 15% of breast malignancies will not be visualized mammographically. In the management of a palpable breast mass, a negative mammogram must not discourage biopsy of a clinically suspicious lesion. Electronically Signed By: Corry Li M.D. lk/:08/19/2022 13:08:26 ACR BI-RADS Category 0: Incomplete 3340F PARENCHYMAL PATTERN: (D) - The breast(s) demonstrate(s) heterogeneously dense fibroglandular parotto david. BI-RADS CATEGORY: (0) - 0 Ultrasound [id number] Immediate follow-up LATERALITY: (B)
--- NOTE | 2022-08-20 13:13 | Ultrasound Report ---
LIMITED ULTRASOUND OF RIGHT BREAST: 08/19/2022 CLINICAL: Palpable right breast lumps and focal pain. Comparison is made to exams dated: 08/19/2022 mammogram - [facility], 07/18/2021 [facility], 08/29/2020 ultrasound, 08/29/2020 mammogram, 09/17/2018 mammogram, and 9 ultrasound - [facility]. Color flow ultrasound of the right breast 12-1 o'clock, 4 o'clock, and 9 o'clock regions was performe d on the areas of interest. Henley scale images of the real-time examination were reviewed. There is a 1.1 cm round complicated cyst in the right breast at 5 o'clock anterior depth. This round complicated cyst is hypoechoic. This abnormality is decreased in size from the ultrasound dated 08/02. Color flow imaging demonstrates that there is no vascularity present. Simple cysts are seen at 12-1 o'clock which likely correspond as palpated and with the mammographic f indings. IMPRESSION: BENIGN There is no sonographic evidence of malignancy. The 1.1 cm round complicated cyst in the right breast is benign. The simple cysts in the right breast at 12-1 o'clock are benign. There is no mammographic or sonographic abnormality seen in the right breast to correspond with the p alpable abnormality at 9 o'clock, however, clinical followup is recommended. Return to annual mammogram screening schedule is recommended. This exam was interpreted at Station ID: [id number]. Electronically Signed By: Corry vega/:08/19/2022 14:05:49 letter sent: No_Letter Ultrasound BI-RADS: 2 Benign BI-RADS CATEGORY: (2) - 2 RECOMMENDATION: (ANNUAL) - Recommend routine annual screening mammography. [id number] return to screening LATERALITY: (B)
--- NOTE | 2022-08-20 13:13 | Ultrasound Report ---
LIMITED ULTRASOUND OF LEFT BREAST: 08/19/2022 CLINICAL: Palpable left breast lumps and focal pain. Comparison is made to exams dated: 08/19/2022 mammogram - [facility], 07/18/2021 [facility], 08/29/2020 ultrasound, 08/29/2020 mammogram, 09/17/2018 mammogram, and 9 ultrasound - [facility]. Color flow ultrasound of the left breast 12-2 o'clock, 6 o'clock, and 10 o'clock regions was perform ed on the areas of interest. Henley scale images of the real-time examination were reviewed. There is a 1.2 cm x 1.2 cm x 6 cm oval mass in the left breast at 12 o'clock posterior depth. This o nyasia mass is hypoechoic with a well-defined boundary, internal echoes, and posterior acoustic enhancem ent. This correlates as palpated. Color flow imaging demonstrates that there is no vascularity pres ent. Simple cysts are seen at 2 o'clock and 10 o'clock in the left breast and correlate as palpated. There is not sonographic abnormality in the left breast at 6 o'clock to correspond with the palpable finding. IMPRESSION: PROBABLY BENIGN The 1.2 cm x 1.2 cm x 6 cm oval mass in the left breast likely represents a complicated cyst or a fib roadenoma and is probably benign. A follow-up ultrasound in 6 months is recommended to demonstrate st ability. Simple cysts at 2 o'clock and 10 o'clock in the left breast are benign. No sonographic correlate in the left breast at 6 o'clock to the palpable mass. Clinical follow up re commended. This exam was interpreted at Station ID: [id number]. Electronically Signed By: Corry vega/:08/19/2022 14:02:12 Ultrasound BI-RADS: 3 Probably benign BI-RADS CATEGORY: (3) - 3 Ultrasound [id number] 6 month follow-up LATERALITY: (B)
== END 2022-08-19 12:18 | disposition home or self-care (01) ==
LOC: DI 12:17
PROVIDERS: ATTEND Surgery
DX: N60.01 Solitary cyst of right breast (principal); N63.25 Unspecified lump in the left breast, overlapping quadrants; N60.02 Solitary cyst of left breast

== ENCOUNTER 2023-03-03 10:21 | Outpatient (CLI) | payer OTHER ==
--- NOTE | 2023-03-04 13:06 | Ultrasound Report ---
LIMITED ULTRASOUND OF LEFT BREAST: 03/03/2023 CLINICAL: Patient returns for a 6 month follow up of the left breast. Comparison is made to exams dated: 08/19/2022 ultrasound, 08/19/2022 mammogram, and 08/29/[address] [facility]. Color flow ultrasound of the left breast 12 o'clock region was performed. Henley scale images of the real-time examination were reviewed. There is a 1.2 cm x 1.2 cm x 6 cm oval mass with a circumscribed margin in the left breast at 12 o'cl ock posterior depth. This oval mass is hypoechoic. This abnormality is not significantly changed. IMPRESSION: PROBABLY BENIGN The 1.2 cm x 1.2 cm x 6 cm oval mass in the left breast likely represents a complicated cyst or a fib roadenoma and is probably benign. A follow-up mammogram and an ultrasound in 6 months is recommended to demonstrate stability. This exam was interpreted at Station ID: [id number]. Electronically Signed By: Sriram winters/derian:03/03/2023 15:30:39 Ultrasound BI-RADS: 3 Probably benign BI-RADS CATEGORY: (3) - 3 Mammo and [place] [id number] 6 month follow-up LATERALITY: (B)
== END 2023-03-03 10:22 | disposition home or self-care (01) ==
LOC: DI 10:21
PROVIDERS: ATTEND Surgery
DX: N63.25 Unspecified lump in the left breast, overlapping quadrants (principal)

== ENCOUNTER 2023-03-03 11:37 | Outpatient (CLI) | payer OTHER ==
--- NOTE | 2023-03-03 20:57 | XRAY Report ---
PROCEDURE: Cervical Spine Comp w/Flex/Ext INDICATIONS: DEGNERATIVE JOINT DISEASE, CERVICAL SPINE TECHNIQUE: 7 views of the cervical spine were acquired. COMPARISON: None. FINDINGS: Bones: Vertebral body height and alignment is maintained. Normal bone mineralization and cranioverte bral relationships. No fracture or traumatic malalignment. There is reversal of normal cervical lordo sis. Flexion and extension imaging shows no evidence of instability. Oblique images demonstrate osseous patency of the neural foramina without stenosis. Soft tissues: Prevertebral soft tissues are normal in thickness. IMPRESSION: Reversal of normal cervical lordosis may related to muscle spasm or positioning. No evidence of osseo us foraminal stenosis or segmental instability Reviewed by: Giorgi Ken MD on 03/03/2023 7:32 PM JACKLYN Approved by: Giorgi Ken MD on 03/03/2023 7:32 PM JACKLYN Station ID: [id number]
== END 2023-03-03 11:38 | disposition home or self-care (01) ==
LOC: DI 11:37
PROVIDERS: ATTEND Internal Medicine
DX: M47.22 Other spondylosis with radiculopathy, cervical region (principal); N63.25 Unspecified lump in the left breast, overlapping quadrants

== ENCOUNTER 2023-08-28 16:35 | Outpatient (CLI) | payer OTHER ==
--- NOTE | 2023-08-28 19:49 | XRAY Report ---
PROCEDURE: Chest 2V INDICATIONS: BRONCHITIS TECHNIQUE: 2 views of the chest were obtained. COMPARISON: None. FINDINGS: Surgical changes and devices: None. Lungs and pleura: No pleural effusions or pneumothorax. Lungs are clear. Mediastinum: Mediastinal contours appear normal. Heart size is normal. Bones and chest wall: No suspicious bony lesions. Overlying soft tissues appear unremarkable. IMPRESSION: Normal two-view chest x-ray Reviewed by: Giorgi Ken MD on 08/28/2023 6:48 PM AKDT Approved by: Giorgi Ken MD on 08/28/2023 6:48 PM AKDT Station ID: [id number]
== END 2023-08-28 16:36 | disposition home or self-care (01) ==
LOC: DI 16:35
PROVIDERS: ATTEND Physician Assistant Medical
DX: J40 Bronchitis, not specified as acute or chronic (principal)

== ENCOUNTER 2023-10-08 09:38 | Outpatient (CLI) | payer OTHER ==
--- NOTE | 2023-10-09 09:12 | Ultrasound Report ---
LIMITED ULTRASOUND OF RIGHT BREAST: 10/08/2023 CLINICAL: Palpable right breast lump. Comparison is made to exams dated: 10/08/2023 mammogram, 08/19/2022 ultrasound, 08/19/2022 mammogram, mammogram, and 09/17/2018 mammogram - [facility]. Color flow and real-time ultrasound of the right breast retroareolar were performed. Henley scale imag es of the real-time examination were reviewed. There is a benign 1 cm x 1 cm x 1 cm round cyst with a smooth internal wall in the right breast at 12 o'clock in the retroareolar region 1 cm from the nipple. This round cyst displays posterior acousti c enhancement. This correlates to the reported pain. Color flow imaging demonstrates that there is no vascularity present. IMPRESSION: BENIGN There is no sonographic evidence of malignancy. The 1 cm x 1 cm x 1 cm round cyst in the right breast is benign. Return to annual mammogram screening schedule is recommended. This exam was interpreted at Station ID: [id number]. Electronically Signed By: Sriram winters/derian:10/08/2023 13:31:37 Ultrasound BI-RADS: 2 Benign BI-RADS CATEGORY: (2) - 2 RECOMMENDATION: (ANNUAL) - Recommend routine annual screening mammography. [id number] return to screening LATERALITY: (B)
--- NOTE | 2023-10-09 09:12 | Ultrasound Report ---
LIMITED ULTRASOUND OF LEFT BREAST: 10/08/2023 CLINICAL: Patient returns today to evaluate a focal asymmetry in the left breast. Comparison is made to exams dated: 10/08/2023 mammogram, 03/03/2023 ultrasound, 08/19/2022 ultrasound, mammogram, 08/29/2020 ultrasound, and 08/29/2020 mammogram - [facility]. Color flow and real-time ultrasound of the left breast 12-1 o'clock region were performed. Henley sca le images of the real-time examination were reviewed. There is a benign 0.7 cm x 0.5 cm x 0.5 cm oval mass with a circumscribed margin in the left breast a t 12 o'clock posterior depth 4 cm from the nipple. This oval mass is hypoechoic. This abnormality i s decreased in size. Adjacent to this cyst, there are multiple additional cysts with a similar appe arance, corresponding to bilateral circumscribed masses on mammography. IMPRESSION: BENIGN There is no sonographic evidence of malignancy. The 0.7 cm x 0.5 cm x 0.5 cm oval mass in the left breast is benign. Return to annual mammogram screening schedule is recommended. This exam was interpreted at Station ID: [id number]. Electronically Signed By: Sriram winters/derian:10/08/2023 13:37:54 letter sent: No_Letter Ultrasound BI-RADS: 2 Benign BI-RADS CATEGORY: (2) - 2 RECOMMENDATION: (ANNUAL) - Recommend routine annual screening mammography. [id number] return to screening LATERALITY: (B)
--- NOTE | 2023-10-09 09:12 | Mammography Report ---
BILATERAL DIGITAL DIAGNOSTIC MAMMOGRAM 3D/2D: 10/08/2023 CLINICAL: Patient returns for a 6 month follow up of the left breast, due for bilateral exam. Comparison is made to exams dated: 08/19/2022 mammogram, 08/29/2020 mammogram, 09/17/2018 mammogram, mammogram, 04/21/2017 mammogram, and 07/12/2016 mammogram - [facility]. Both breasts are heterogeneously dense, which may obscure small masses (category c / 51-75% glandular tissue). There are stable well circumscribed masses in both breasts. No significant masses, calcifications, or other findings are seen in either breast. IMPRESSION: INCOMPLETE: NEEDS ADDITIONAL IMAGING EVALUATION A targeted ultrasound of the bilateral breasts is recommended and will be performed immediately follo wing this exam. There is no new abnormality seen in the right breast to correspond with the pain. Based on the Tyrer Cuzick model (a risk assessment model) the patient's lifetime risk is 10.2% and he r 10 year risk is 2.5%. According to the ACR, ACS, and NCCN guidelines, an annual breast MRI exam nabila ng with mammogram is recommended if the patient's lifetime risk is 20% or greater. This exam was interpreted at Station ID: [id number]. NOTE: For mammograms, a report in lay terms will be sent to the patient. Approximately 15% of breast malignancies will not be visualized mammographically. In the management of a palpable breast mass, a negative mammogram must not discourage biopsy of a clinically suspicious lesion. Electronically Signed By: Sriram Liu M.D. ar/:10/08/2023 13:26:31 ACR BI-RADS Category 0: Incomplete 3340F PARENCHYMAL PATTERN: (D) - The breast(s) demonstrate(s) heterogeneously dense fibroglandular parenchy ma. BI-RADS CATEGORY: (0) - 0 Ultrasound [id number] Immediate follow-up LATERALITY: (L)
== END 2023-10-08 09:39 | disposition home or self-care (01) ==
LOC: DI 09:38
PROVIDERS: ATTEND Internal Medicine
DX: N63.25 Unspecified lump in the left breast, overlapping quadrants (principal); N63.15 Unspecified lump in the right breast, overlapping quadrants; R92.333 Mammographic heterogeneous density, bilateral breasts